=== PATIENT | male | born 2000 | race Caucasian/White ===

== ENCOUNTER 2019-04-30 19:34 | Inpatient (IN) ==
[2019-04-30 20:15] LABS: Basophils % 0.3 %; Eosinophils # 0.1 K/mcL (0.0-0.6); Hematocrit 43.8 % (37.5-50.1); Hemoglobin 14.5 g/dL (12.9-16.9); Immature Granulocytes % 0.6 % (0-4); Lymphocytes # 2.2 K/mcL (0.6-4.6); Mean Corpuscular HGB Conc 33.1 g/dL (31.6-35.5); Mean Corpuscular Hemoglobin 28.6 pg (28.0-33.3); Mean Corpuscular Volume 86.4 fL (83.0-100.0); Mean Platelet Volume 9.5 fL (9.4-12.4); Monocytes # 0.7 K/mcL (0.0-1.3); Monocytes % 7.9 %; Neutrophils # 5.5 K/mcL (1.6-8.9); Platelet Count 230 K/mcL (140-400); Red Blood Count 5.07 M/mcL (4.19-5.50); Red Cell Distribution Width 13.3 % (11.5-14.5); Segmented Neutrophils % 64.2 %; White Blood Count 8.6 K/mcL (4.3-11.1)
[2019-04-30] MEDS ORDERED: Ibuprofen 400 MG TABLET PO ONE (20:26)
[2019-04-30 20:32] LABS: Acetaminophen < 10 mcg/mL (10-20); BUN/Creatinine Ratio 7 (6-26); Blood Urea Nitrogen 7 mg/dL (6-20); Calcium 9.3 mg/dL (8.6-10.3); Carbon Dioxide 30 mEq/L (23-29); Chloride 100 mEq/L (98-107); Ethanol < 10 mg/dL (Less than 10); Glucose 76 mg/dL (70-105); Osmolality,Calculated 283 (280-300); Potassium 3.8 mEq/L (3.5-5.1); Salicylate < 2.5 mg/dL (15.0-30.0); Sodium 138 mEq/L (136-145); eGFR For African Americans > 60 (> 60); eGFR For Non-African Americans > 60 (> 60)
[2019-04-30 20:33] LABS: Bilirubin,Urine Negative (Negative); Blood,Urine Large (Negative); Clarity,Urine Clear (Clear); Color,Urine Yellow (Yellow); Glucose,Urine (UA) Normal (Normal); Ketones,Urine Negative (Negative); Leukocyte Esterase,Urine Moderate (Negative); Nitrite,Urine Negative (Negative); Protein,Urine Negative (Neg-Trace); Specific Gravity,Urine 1.006 (1.010-1.025); Urobilinogen,Urine Normal (Normal)
[2019-04-30 20:35] LABS: Bacteria,Urine None Seen per hpf (None-Few); Hyaline Casts,Urine None Seen per lpf (None-Few); Squamous Epithelial Cell,Urine Moderate per lpf (None-Few)
[2019-04-30 20:44] LABS: Amphetamine Screen,Urine Positive ng/mL (Cutoff=1000); Barbiturate Screen,Urine Negative ng/mL (Cutoff=200); Benzodiazepines Screen,Urine Negative ng/mL (Cutoff=200); Cannabinoid Screen,Urine Negative ng/mL (Cutoff = 50); Cocaine Screen,Urine Negative ng/mL (Cutoff= 300); Opiate Screen,Urine Negative ng/mL (Cutoff=300); Phencyclidine Screen,Urine Negative ng/mL (Cutoff=25)
[2019-04-30] MEDS ORDERED: Haloperidol Lactate 5 MG/ML VIAL IM PRN (23:29)
[2019-04-30] MEDS ORDERED: *HR* LORazepam 2 MG/ML VIAL IM PRN (23:29)
[2019-04-30] MEDS ORDERED: Mag Hydrox/Al Hydrox/Simeth 30 ML UDC PO PRN (23:29)
[2019-04-30] MEDS ORDERED: Acetaminophen 325 MG TABLET PO PRN (23:29)
[2019-04-30] MEDS ORDERED: *HR* LORazepam 1 MG TABLET PO PRN (23:29)
[2019-04-30] MEDS ORDERED: MOM Conc 10 ML UD.LIQ PO PRN (23:29)
[2019-04-30] MEDS ORDERED: hydrOXYzine pamoate 25 MG CAPSULE PO PRN (23:29)
[2019-05-01] MEDS: traZODone 50 MG TABLET PO PRN ×2 (00:35→22:00)
[2019-05-01] MEDS: Nicotine 2 MG GUM BC PRN (22:03)
[2019-05-02] MEDS: Nicotine 2 MG GUM BC PRN (21:25)
[2019-05-03 09:42] VITALS: BP 120/88
== END 2019-05-03 15:25 | disposition home or self-care (01) | DRG 754 ==
LOC: EMEROOARM 19:34 → 1ANU 22:52
PROVIDERS: ADMIT Psychiatry & Neurology Psychiatry; ATTEND Psychiatry & Neurology Psychiatry